=== PATIENT | female | born 1965 | race Caucasian/White ===

== ENCOUNTER 2016-08-30 07:04 | Day surgery (SDC) | payer OTHER ==
[2016-08-22 09:53] VITALS: BMI 21.2
--- NOTE | 2016-08-25 13:56 | HP ---
Admitting History and Physical - Primary Care Physician PCP: Miguel Cabrera - Admission Chief Complaint: Right breast cancer and right axillary mass History of Present Illness: 50 year old premenapausal female with family H/O breast cancer with screening mammogram showing dense tissu . US showed shadowing in a few areas at 1:00 and core bx of right breast 1:00 5 cm FN x two showed invasive ductal carcinoma and DCIS. There was also a right axillary density that was compatible with sebaceous cyst or lipoma. MRI breast showed negative left breast and right breast newly diagnosed right breast cancer and axillary mass for US core. Dr Cabrera examined the patient and feels it is benign and can be excised at time of surgery. History Source: Patient Limitations to Obtaining History: No Limitations - Past Medical History Cardiovascular: Yes: HTN, Hyperlipdemia ...LMP Comment: PT. HAS IUD ...: No - Smoking History Smoking history: Never smoked Have you smoked in the past 12 months: No - Alcohol/Substance Use Hx Alcohol Use: No Home Medications - Allergies Allergies/Adverse Reactions: Allergies Allergy/AdvReac Type Severity Reaction Status Date / Time No Known Allergies Allergy Verified 08/22/16 09:42 - Home Medications Home Medications: Ambulatory Orders Atorvastatin Ca [Lipitor] 10 mg PO HS 08/22/16 Cholecalciferol (Vitamin D3) [Vitamin D3] 2,000 unit PO HS 08/22/16 Lisinopril [Zestril] 5 mg PO HS 08/22/16 Family Disease History - Family Disease History Family Disease History: CA: Grandparent (maternal GF CRC 70), Father (melanoma 70), Sister (Breast ca 45 BRCA neg) Physical Examination Constitutional: Yes: Well Nourished Breast(s): Yes: Other (diffusely nodule bilaterally post bx changes right breast right axillary nodule soft and consistent with lipoma) Problem List - Problems (1) Breast cancer, right breast Code(s): C50.911 - MALIGNANT NEOPLASM OF UNSP SITE OF RIGHT FEMALE BREAST Qualifiers: Breast location: upper inner quadrant of breast Patient sex: female Qualified Code(s): C50.211 - Malignant neoplasm of upper-inner quadrant of right female breast Assessment/Plan Right breast wide excision, mammogram localization, lymphoscintogram , sentenel node biopsy , possible axillary node dissection, excision of right axillary mass.
[2016-08-30] MEDS ORDERED: LIDOCAINE HCL 1%, 10 MG/ML (20ML VIAL) ONE (10:37)
[2016-08-30] MEDS ORDERED: ISOSULFAN BLUE 10 MG/ML VIAL SQ ONE (10:37)
[2016-08-30] MEDS ORDERED: MIDAZOLAM HCL 2 MG/2 ML SINGLE DOSE VIAL ONE (11:19)
[2016-08-30] MEDS ORDERED: KETOROLAC TROMETHAMINE 30 MG/1 ML VIAL IVPUSH PRN (11:23)
[2016-08-30] MEDS ORDERED: ONDANSETRON 4 MG/2 ML VIAL IVPB PRN (11:23)
[2016-08-30] MEDS ORDERED: DEXTROSE 5%-0.45% SALINE 1,000 ML IV SCH (11:30)
[2016-08-30] MEDS ORDERED: PROMETHAZINE HCL 25 MG/1 ML VIAL ONE (13:21)
[2016-08-30] MEDS ORDERED: oxyCODONE HCL 5 MG TABLET PO PRN ×2 (13:51)
[2016-08-30] MEDS ORDERED: PROMETHAZINE HCL 25 MG/1 ML VIAL IVPUSH PRN (13:51)
[2016-08-30] MEDS ORDERED: LACTATED RINGERS SOLUTION 1,000 ML IV SCH (14:00)
[2016-08-30] MEDS ORDERED: oxyCODONE HCL 5 MG TABLET ONE (15:33)
[2016-08-30 16:42] VITALS: BP 124/67; PULSE 76; TEMP 98.1
--- NOTE | 2016-08-30 21:39 | OP ---
DATE OF OPERATION: 08/30/2016 PREOPERATIVE DIAGNOSIS: Right breast cancer and right axillary sebaceous cyst. POSTOPERATIVE DIAGNOSIS: Right breast cancer and right axillary sebaceous cyst. PROCEDURE: Right breast partial mastectomy with complex tissue transfer, sentinel lymph node biopsy, and excision of right axillary sebaceous cyst. ANESTHESIA: General, intubated. ATTENDING SURGEON: Frannie Cabrera MD GREENKEEPER: BHUPENDRA Grayson ESTIMATED BLOOD LOSS: Minimal. COMPLICATIONS: None. PROCEDURE: Patient was made aware of the risks and benefits of the procedure and consented. Preoperatively, the patient went to Radiology, where a needle was placed next to the indexed lesion and then Nuclear Medicine, where technetium was injected into the retroareolar area. The patient was then placed in a supine position on the operating room table, and after general anesthesia was induced, the patient was intubated. Then 2 mL of 1% isosulfan blue were locally infiltrated into the retroareolar tissue. The operative site was prepped and draped in the usual sterile fashion, waiting approximately 10 minutes. With gentle manual compression, a curvilinear incision was made in the right axilla using blunt and sharp dissection. Tissues were dissected down to the axilla, where 2 courses of hot lymph nodes were identified and removed as well as 2 blue lymph nodes were seen and sharply excised. These were all submitted as 1 specimen for permanent sectioning. Palpation of the rest of the axilla revealed no other suspicious lymph nodes and scanning revealed the radioactive uptake was less than 10% of baseline before surgery. Laterally there was a palpable sebaceous cyst and this was sharply excised and submitted for permanent sectioning. The wound was copiously irrigated with normal saline, hemostasis maintained by electrocautery. The wound was then closed with deep 3-0 Vicryl followed by running subcuticular 4-0 Monocryl. The breast was approached 1st. A curvilinear incision was made next to the wire using electrocautery. Thick skin flaps were made. The needle was withdrawn to the puncture site of wire and tissues around the wire were then sharply excised and submitted with a short suture superior, long suture lateral. Specimen radiograph confirmed the presence of the 2 clips. Additional segment was taken medially and the new margin was labeled with a suture. The other segments were taken superior, inferior, lateral, and anterior, and these were all labeled with a metallic clip for the new margins. The deep margin was not taken since it went down to the pectoralis muscle. Using electrocautery, the breast tissue was taken off the pectoralis muscle 6 cm in each direction and then rotated into the cavity with multiple layers of [id number] 2-0 Vicryl. Skin was then closed with deep 3-0 Vicryl followed by running subcuticular 4-0 Monocryl. Steri-Strips and sterile bandage as well as a compression bra were then applied and the patient, having tolerated the procedure well, was transferred to the recovery room in excellent condition. FRANNIE CABRERA M.D. [id number]
--- NOTE | 2016-09-02 15:37 | PATH ---
Surgical Pathology Report Patient Name: TRACY CUNNINGHAM [facility]. Rec. #: [id number] /Age/Gender: 1965 (Age: 50) / F Account: [id number] Location: [facility] Taken: 08/30/2016 Received: 08/30/2016 Reported: 09/02/2016 Physicians: Miguel Cabrera M.D. Specimen(s) Received A: RIGHT AXILLARY SENTINEL LYMPH NODES B: RIGHT AXILLARY SEBACIOUS CYST C: RIGHT BREAST WIDE EXCISION D: RIGHT BREAST MEDIAL SEGMENT E: RIGHT BREAST SUPERIOR SEGMENT F: RIGHT BREAST INFERIOR SEGMENT G: RIGHT BREAST LATERAL SEGMENT H: RIGHT BREAST ANTERIOR SEGMENT Clinical History Wide excision: Invasive carcinoma Final Diagnosis A. LYMPH NODES, RIGHT AXILLARY SENTINEL, EXCISION: FOUR LYMPH NODES, NEGATIVE FOR METASTATIC CARCINOMA (0/4). B. "AXILLARY SEBACEOUS CYST", RIGHT, EXCISION: BENIGN BREAST TISSUE SHOWING FIBROCYSTIC CHANGES INCLUDING PROMINENT LARGE CYST AND MICROCYSTS WITH APOCRINE METAPLASIA. C. BREAST, RIGHT, WIDE EXCISION: INVASIVE LOBULAR CARCINOMA, CLASSICAL TYPE (NUCLEAR GRADE 1-2), MEASURING 1.6 CM IN GREATEST DIMENSION, MICROSCOPICALLY. (SEE NOTE) LOBULAR CARCINOMA IN SITU (LCIS), CLASSICAL TYPE. INVASIVE CARCINOMA IS CLOSE TO (< 1 MM) THE LATERAL, INFERIOR AND DEEP MARGINS. SEE SPECIMENS D-H FOR FINAL MARGINS. FOCAL FLAT EPITHELIAL ATYPIA. NO LYMPHOVASCULAR INVASION IS IDENTIFIED. PRIOR BIOPSY SITE CHANGES ARE PRESENT. PATHOLOGIC STAGE (pTNM): pT1c pN0. SEE ALSO INVASIVE CARCINOMA CASE SUMMARY BELOW. Note: Two separate biopsy clips are identified within the specimen, corresponding to two separate biopsy sites. However, microscopically, the two separately biopsied lesions appear to be one contiguous lesion. The carcinoma is negative for E-cadherin (performed at [facility]), which supports lobular phenotype. D. BREAST, RIGHT, MEDIAL SEGMENT, EXCISION: INVASIVE LOBULAR CARCINOMA, FOCALLY AT 1 MM FROM THE CLOSEST NEW MARGIN. LOBULAR CARCINOMA IN SITU (LCIS). PRIOR BIOPSY SITE CHANGES ARE PRESENT. E. BREAST, RIGHT, SUPERIOR SEGMENT, EXCISION: BENIGN BREAST TISSUE. F. BREAST, RIGHT, INFERIOR SEGMENT, EXCISION: INVASIVE LOBULAR CARCINOMA, EXTENDING TO THE NEW MARGIN. LOBULAR CARCINOMA IN SITU (LCIS). G. BREAST, RIGHT, LATERAL SEGMENT, EXCISION: BENIGN BREAST TISSUE. H. BREAST, RIGHT, ANTERIOR SEGMENT, EXCISION: BENIGN FIBROADIPOSE TISSUE. Comments Breast Invasive Carcinoma: Surgical Pathology Cancer Case Summary Based on AJCC/UICC TNM, 7th edition Procedure _X_ Excision with image-guided localization Lymph Node Sampling _X_ [place] lymph node(s) Specimen Laterality _X_ Right Tumor Size: Size of Largest Invasive Carcinoma: 1.6 cm Tumor Focality _X_ Single focus of invasive carcinoma Macroscopic and Microscopic Extent of Tumor Nipple _X_ Not applicable (excisions less than total mastectomy) Ductal Carcinoma In Situ (DCIS) _X_ No DCIS is present Histologic Type of Invasive Carcinoma : _X_ Invasive lobular carcinoma Histologic Grade: ([place] Histologic Score) Tubular Differentiation _X_ Score cannot be determined Nuclear Pleomorphism _X_ Score 1-2 Mitotic Rate _X_ Score 1 Overall Grade _X_ Score cannot be determined. Margins _X_ Margin(s) positive for invasive carcinoma: inferior (specimen F) _X_ Margin(s) close to (< 1 mm) invasive carcinoma: deep (specimen C) Lymph-Vascular Invasion _X_ Not identified Lymph Nodes Total number of lymph nodes examined (sentinel and nonsentinel): 4 Number of sentinel lymph nodes examined: 0 Number of lymph nodes with macrometastases ( > 2 mm): 0 Number of lymph nodes with micrometastases (>0.2 mm to 2 mm and/or >200cells):0 Number of lymph nodes with isolated tumor cells (=0.2 mm and =200 cells): 0 Extranodal Extension _X_ Not applicable Pathologic Staging (pTNM) Primary Tumor (Invasive Carcinoma): pT1c Regional Lymph Nodes (pN): pN0 (sn) Biomarker Studies Results of ER and ID studies performed on this specimen (block C4) at [facility] are as follows: ER (clone [id number] mouse monoclonal antibody by [employer]): ~70 % nuclear staining with moderate to strong intensity (Positive). ID (clone16 mouse monoclonal antibody by [employer]): ~70 % nuclear staining with moderate to strong intensity (Positive). Results of Her2 (IHC) & Ki-67 studies performed on this specimen (block C4) at [place], [place] ( [id number]) are as follows: Her2 IHC (EP3 from [employer], formerly known as [id number], using [place] Polymer Refine detection kit): 1+ (Negative). Ki67: ~5% (Low). Positive and negative controls (internal if applicable) show appropriate results. Formalin fixation and cold ischemic times are within current ASCO/CAP recommendations for ER, ID and Her2 testing. Electronically Signed Andreea Fierro M.D. Gross Description A. Received in formalin labeled "right axillary sentinel nodes," are 4 pineda, irregular lymph nodes with attached fat ranging from 0.1-1.1 cm in greatest dimension. The lymph nodes are entirely submitted in 3 cassettes as follows: 1-two whole lymph nodes; 2-one whole bisected lymph node; 3-one whole bisected lymph node. B. Received in formalin labeled "right axillary sebaceous cyst," is a 2.0 x 1.8 x 1.5 cm irregular, unoriented portion of fibroadipose tissue. Sectioning reveals a 0.6 cm in greatest dimension pineda cystic structure surrounded by fibrous tissue. Retail [employer]cer sections are submitted in 2 cassettes. C. Received in formalin labeled "right breast wide excision," is a 2.8 x 2.8 x 1.5 cm pineda-yellow, irregular portion of fibroadipose tissue with a short suture marking the superior margin and a long suture marking the lateral margin of the specimen, per the surgeon. A needle localization wire is present. There is no skin present. The specimen is inked as follows: Superior and lateral blue; inferior green; medial yellow; anterior red; deep black. The specimen is serially sectioned from lateral to medial. Sectioning reveals a 1.4 x 0.9 x 0.6 cm pineda, firm mass. The mass focally abuts the deep margin and is at 0.4 cm from the inferior margin and 0.5 cm from the superior margin. There are 2 toure metallic biopsy clips identified within the mass. The specimen is entirely and sequentially submitted in 8 cassettes with the lateral margin in cassette 1, the medial margin in cassette 8 and the sections with the biopsy clips in cassettes 2 and 4. Time to formalin fixation: 5 minutes Total formalin fixation time: Approximately 30 hours. D. Received in formalin labeled "medial segment right breast," is a 1.8 x 1.3 x 0.7 cm irregular portion of fibroadipose tissue with a suture marking the new margin, per the surgeon. The new margin is inked green and the specimen is serially sectioned. The specimen is entirely and sequentially submitted in 3 cassettes. E. Received in formalin labeled "superior segment right breast," is a 1.4 x 1.0 x 0.5 cm irregular portion of fibroadipose tissue with a clip marking the new margin, per the surgeon. The new margin is inked green and the specimen is serially sectioned. The specimen is entirely submitted in 2 cassettes. F. Received in formalin labeled "inferior segment right breast," is a 1.5 x 1.0 x 0.5 cm irregular portion of fibroadipose tissue with a clip marking the new margin, per the surgeon. The new margin is inked green and the specimen is serially sectioned. The specimen is entirely submitted in 2 cassettes. G. Received in formalin labeled "lateral segment right breast," is a 1.4 x 1.2 x 0.4 cm irregular portion of fibroadipose tissue with a clip marking the new margin, per the surgeon. The new margin is inked green and the specimen is serially sectioned. The specimen is entirely and sequentially submitted in 3 cassettes. H. Received in formalin labeled "anterior segment right breast," is a 1.0 x 0.9 x 0.3 cm irregular portion of fibroadipose tissue with a clip marking the new margin, per the surgeon. The new margin is inked green and the specimen is serially sectioned. The specimen is entirely submitted in one cassette. 09/02/201609/02/2016
== END 2016-08-30 16:30 | disposition home or self-care (01) ==
LOC: FASU 07:04
PROVIDERS: ATTEND Surgery Surgical Oncology
PROC: 0HBT0ZZ Excision of Right Breast, Open Approach (ICD-10-PCS; principal; 2016-08-30 12:06)
PROC: 0HX5XZZ Transfer Chest Skin, External Approach (ICD-10-PCS; 2016-08-30 12:06)
DX: C50.911 Malignant neoplasm of unspecified site of right female breast (principal); L72.3 Sebaceous cyst
CPT/HCPCS: 19281; 78195-TC; 84703; 88304-TC; 88307-TC; 88342-TC; 94760; A9541

== ENCOUNTER 2016-09-09 11:37 | Day surgery (SDC) | payer OTHER ==
[2016-09-06 11:53] VITALS: BMI 21.2
--- NOTE | 2016-09-07 09:54 | HP ---
Admitting History and Physical - Primary Care Physician PCP: Miguel Cabrera - Admission Chief Complaint: Right breast cancer History of Present Illness: 50 year old premenapausal female S/P right breast wide excision 08/30/2016 for invasive lobular carcinoma. She needs reexcision for positive inferior margin. History Source: Patient Limitations to Obtaining History: No Limitations - Past Medical History Cardiovascular: Yes: HTN, Hyperlipdemia ...LMP Comment: PT HAS IUD IN - Smoking History Smoking history: Never smoked Have you smoked in the past 12 months: No - Alcohol/Substance Use Hx Alcohol Use: No Home Medications - Allergies Allergies/Adverse Reactions: Allergies Allergy/AdvReac Type Severity Reaction Status Date / Time No Known Allergies Allergy Verified 08/22/16 09:42 - Home Medications Home Medications: Ambulatory Orders Atorvastatin Ca [Lipitor] 10 mg PO HS 08/22/16 Cholecalciferol (Vitamin D3) [Vitamin D3] 2,000 unit PO HS 08/22/16 Lisinopril [Zestril] 5 mg PO HS 08/22/16 Doxycycline Hyclate 100 mg PO BID 09/06/16 Family Disease History - Family Disease History Family Disease History: CA: Grandparent (maternal GF CRC 70), Father (melanoma 70), Sister (Breast ca 45 BRCA neg) Physical Examination Constitutional: Yes: Well Nourished Breast(s): Yes: Other (Right breast incison and axillary incision healing well steristrips are in place) Problem List - Problems (1) Breast cancer, right breast Code(s): C50.911 - MALIGNANT NEOPLASM OF UNSP SITE OF RIGHT FEMALE BREAST Qualifiers: Breast location: upper outer quadrant of breast Patient sex: female Assessment/Plan reexcision right breast positive inferior margin
[2016-09-09] MEDS ORDERED: LIDOCAINE HCL 1%, 10 MG/ML (20ML VIAL) ONE (12:31)
[2016-09-09] MEDS ORDERED: LIDOCAINE HCL/PF 2% SDV 5ML VIAL ONE (13:10)
[2016-09-09] MEDS ORDERED: PROPOFOL 20 ML ONE ×2 (13:10)
[2016-09-09] MEDS ORDERED: SUCCINYLCHOLINE CHLORIDE 200 MG/10 ML VIAL ONE (13:10)
[2016-09-09] MEDS ORDERED: MIDAZOLAM HCL 2 MG/2 ML SINGLE DOSE VIAL ONE (13:11)
[2016-09-09] MEDS ORDERED: KETOROLAC TROMETHAMINE 30 MG/1 ML VIAL IVPUSH PRN (14:11)
[2016-09-09] MEDS ORDERED: DEXTROSE 5%-0.45% SALINE 1,000 ML IV SCH (14:15)
[2016-09-09] MEDS ORDERED: ONDANSETRON 4 MG/2 ML VIAL IVPB PRN (14:24)
[2016-09-09] MEDS ORDERED: LACTATED RINGERS SOLUTION 1,000 ML IV SCH (14:45)
[2016-09-09] MEDS ORDERED: ONDANSETRON 4 MG/2 ML VIAL IVPUSH PRN (15:00)
[2016-09-09] MEDS ORDERED: oxyCODONE HCL 5 MG TABLET PO PRN (15:00)
[2016-09-09] MEDS ORDERED: PROMETHAZINE HCL 25 MG/1 ML VIAL IVPUSH PRN (15:01)
[2016-09-09 15:09] VITALS: TEMP 98.2
[2016-09-09] MEDS ORDERED: oxyCODONE HCL 5 MG TABLET ONE (15:13)
[2016-09-09 15:31] VITALS: BP 127/76; PULSE 70
--- NOTE | 2016-09-14 14:48 | PATH ---
Surgical Pathology Report Patient Name: TRACY CUNNINGHAM [facility]. Rec. #: [id number] /Age/Gender: 1965 (Age: 50) / F Account: [id number] Location: [facility] Taken: 09/09/2016 Received: 09/09/2016 Reported: 09/14/2016 Physicians: Miguel Cabrera M.D. Specimen(s) Received A: RIGHT BREAST RE-EXCISION, INFERIOR SEGMENT #1 B: RIGHT BREAST RE-EXCISION INFERIOR SEGMENT #2 C: RIGHT BREAST RE-EXCISION FINAL MARGIN Clinical History Invasive ILC positive inferior margin status post BCT Final Diagnosis A. BREAST, RIGHT, INFERIOR SEGMENT #1, RE-EXCISION: INVASIVE LOBULAR CARCINOMA, CLASSICAL TYPE (NUCLEAR GRADE 1-2), FOCALLY EXTENDING TO THE INKED RESECTION MARGIN OF THIS SPECIMEN. LOBULAR CARCINOMA IN SITU (LCIS), CLASSICAL TYPE. EXTENSIVE PRIOR SURGICAL SITE CHANGES. B. BREAST, RIGHT, INFERIOR SEGMENT #2, RE-EXCISION: INVASIVE LOBULAR CARCINOMA, CLASSICAL TYPE (NUCLEAR GRADE 1-2), FOCALLY EXTENDING TO THE INKED RESECTION MARGIN OF THIS SPECIMEN. LOBULAR CARCINOMA IN SITU (LCIS), CLASSICAL TYPE. EXTENSIVE PRIOR SURGICAL SITE CHANGES. C. BREAST, RIGHT, FINAL MARGIN, RE-EXCISION: INVASIVE LOBULAR CARCINOMA, CLASSICAL TYPE (NUCLEAR GRADE 1-2). LOBULAR CARCINOMA IN SITU (LCIS), CLASSICAL TYPE. INVASIVE CARCINOMA IS FOCALLY LESS THAN 0.5 MM FROM THE INKED FINAL MARGIN. Comment: Refer to the prior case ([id number]) for the results of the wide excision, biomarkers studies and e-cadherin immunostain results. Electronically Signed Riley Greene M.D. Gross Description A. Received in formalin labeled "right breast reexcision inferior segment #1," is a 3.0 x 2.6 x 0.9 cm irregular portion of fibroadipose tissue with a suture at the margin, per the surgeon. The margin is inked blue and the specimen is serially sectioned. The specimen is entirely and sequentially submitted in 4 cassettes. B. Received in formalin labeled "right breast reexcision inferior segment #2," is a 3.2 x 2.2 x 1.0 cm irregular portion of fibroadipose tissue with a suture marking the margin, per the surgeon. The margin is inked blue and the specimen is serially sectioned. The specimen is entirely and sequentially submitted in 4 cassettes. C. Received in formalin labeled "right breast reexcision final margin," is a 1.5 x 0.9 x 0.4 cm irregular portion of fibroadipose tissue with a suture marking the final margin, per the surgeon. The final margin is inked blue and the specimen is serially sectioned. The specimen is entirely submitted in 2 cassettes. 09/12/2016 [facility]09/12/2016
--- NOTE | 2016-09-26 10:33 | OP ---
DATE OF OPERATION: 09/09/2016 PREOPERATIVE DIAGNOSIS: Right breast cancer with positive inferior margin. POSTOPERATIVE DIAGNOSIS: Right breast cancer with positive inferior margin. PROCEDURE: Right breast re-excision with tissue transfer. ANESTHESIA: General intubated. SURGEON: Miguel Cabrera MD ESTIMATED BLOOD LOSS: Minimal. COMPLICATIONS: None. PROCEDURE: The patient was made aware of the risks and benefits of the procedure and consented. After she was placed in a supine position after general anesthesia was induced, the patient was intubated. The operative site was prepped and draped in the usual sterile fashion. The prior incision was opened up using blunt and sharp dissection. The previous tissue transfer reconstruction was taken down revealing the inferior margin. This was grasped, and additional tissue was taken with scalpel and a suture making the new margin; however, palpation of that new margin revealed additional thickened tissue that was somewhat suspicious, so an additional segment was taken labeled inferior segment number 2 with a suture at the new margin. Palpation of the inferior segment showed an additional thickened area that was of concern, so again, some more breast tissue inferiorly was grasped and sharply excised with a scalpel. The cut edges on the specimen and in the patient were both fatty and not suspicious. The 3 specimens were submitted for permanent sectioning. The wound was copiously irrigated with normal saline. Hemostasis maintained by electrocautery. The breast tissue was taken off the pectoralis muscle in each direction and rotated in the defect and closed with multiple layers of [id number] suture of 2-0 Vicryl. The skin was then closed with a deep 3-0 Vicryl followed by a running subcuticular 4-0 Monocryl. Steri-Strips and a sterile bandage was applied and the patient having tolerated the procedure well was transferred to the recovery room in excellent condition. MIGUEL CABRERA M.D. [id number]
== END 2016-09-09 16:15 | disposition home or self-care (01) ==
LOC: FASU 11:37
PROVIDERS: ATTEND Surgery Surgical Oncology
PROC: 0HX5XZZ Transfer Chest Skin, External Approach (ICD-10-PCS; 2016-09-09)
PROC: 0HBT0ZZ Excision of Right Breast, Open Approach (ICD-10-PCS; principal; 2016-09-09 13:30)
DX: C50.911 Malignant neoplasm of unspecified site of right female breast (principal)
CPT/HCPCS: 84703; 88307-TC; 94760

== ENCOUNTER 2016-10-18 07:09 | Inpatient (IN) | payer OTHER ==
[2016-10-11 11:35] VITALS: BMI 22.2
--- NOTE | 2016-10-11 13:07 | HP ---
Admitting History and Physical - Primary Care Physician PCP: Miguel Cabrera - Admission Chief Complaint: Right breast cancer History of Present Illness: 50 year old premenapausal female S/P right breast wide excision SNBX for 1.6 cm lobular carcinoma 0/4 negative sentenel nodes but had positive inferior margin. . Re excision right breast positive margin 09/09/2016 x3 all with invasive lobular carcinoma .5 mm from margin. Here for bilateral mastectomies due to her possible elevated risk of recurrence. History Source: Patient Limitations to Obtaining History: No Limitations - Past Medical History Cardiovascular: Yes: HTN, Hyperlipdemia - Past Surgical History Additional Past Surgical History: Right breast wide excision sentenel node biopsy with + inferior margin.0/4 negative nodes for ILC 1.6 cm and reexcision x3 with ILC in all specimen .5 cm margin 08/30/2016 and 09/09/2016 - Smoking History Smoking history: Never smoked Have you smoked in the past 12 months: No - Alcohol/Substance Use Hx Alcohol Use: No Home Medications - Allergies Allergies/Adverse Reactions: Allergies Allergy/AdvReac Type Severity Reaction Status Date / Time No Known Allergies Allergy Verified 10/11/16 11:25 - Home Medications Home Medications: Ambulatory Orders Atorvastatin Ca [Lipitor] 10 mg PO HS 08/22/16 Cholecalciferol (Vitamin D3) [Vitamin D3] 2,000 unit PO HS 08/22/16 Lisinopril [Zestril] 5 mg PO HS 08/22/16 Family Disease History - Family Disease History Family Disease History: CA: Grandparent (maternal GF CRC 70), Father (melanoma 70), Sister (Breast ca 45 BRCA neg) Other Family History: mat [place] breast ca 50. mat cousin x2 Breast ca 38/45 Physical Examination Constitutional: Yes: Well Nourished Breast(s): Yes: Other (Right breast incison and axillary incision healing well no signs of infection) Problem List - Problems (1) Breast cancer, right breast Code(s): C50.911 - MALIGNANT NEOPLASM OF UNSP SITE OF RIGHT FEMALE BREAST Qualifiers: Breast location: upper outer quadrant of breast Patient sex: female Assessment/Plan Bilateral total mastectomies with reconstruction
[2016-10-18] MEDS ORDERED: DEXAMETHASONE SOD PHOSPHATE/PF 10 MG/ML SDV ONE (07:28)
[2016-10-18] MEDS ORDERED: MIDAZOLAM HCL 2 MG/2 ML SINGLE DOSE VIAL ONE (07:28)
[2016-10-18] MEDS ORDERED: ceFAZolin SODIUM 1 GM VIAL ONE (07:29)
[2016-10-18] MEDS ORDERED: BUPIVACAINE HCL/PF 2.5 MG/ML - 30 ML VIAL IJ ONE ×2 (07:29)
[2016-10-18] MEDS ORDERED: GENTAMICIN SO4 80 MG/2 ML VIAL ONE (07:29)
[2016-10-18] MEDS ORDERED: LIDOCAINE 1%/EPI 1:100000 (20 ML MULTI DOSE VIAL) ONE (07:30)
[2016-10-18] MEDS ORDERED: SCOPOLAMINE HYDROBROMIDE 1 PATCH PATCH.TD72 ONE (08:07)
[2016-10-18] MEDS ORDERED: ACETAMINOPHEN 325 MG TABLET (FP) PO PRN (08:39)
[2016-10-18] MEDS ORDERED: ZOLPIDEM TARTRATE 5 MG TABLET PO PRN (08:39)
[2016-10-18] MEDS ORDERED: DEXTROSE 5%-0.45% SALINE 1,000 ML IV SCH (08:45)
[2016-10-18] MEDS ORDERED: ceFAZolin SODIUM 1 GM VIAL IVPB ONE (09:11)
[2016-10-18] MEDS ORDERED: oxyCODONE HCL 5 MG TABLET PO PRN (12:40)
[2016-10-18] MEDS ORDERED: diazePAM 2 MG TABLET PO SCH (12:45)
[2016-10-18] MEDS ORDERED: LACTATED RINGERS SOLUTION 1,000 ML IV SCH (12:45)
[2016-10-18] MEDS ORDERED: traMADol HCL 50 MG TABLET PO SCH (12:45)
[2016-10-18] MEDS ORDERED: ACETAMINOPHEN 325 MG TABLET (FP) PO SCH (12:45)
[2016-10-18] MEDS: HYDROmorphone HCL CARPU-JECT 1 MG/1 ML DISP.SYRIN ONE ×2 (14:15→14:25)
[2016-10-18] MEDS ORDERED: ONDANSETRON 4 MG/2 ML VIAL ONE (14:18)
[2016-10-18] MEDS: ONDANSETRON 4 MG/2 ML VIAL IVPB PRN (14:20)
[2016-10-18] MEDS: CEFAZOLIN 1 GM/D5W 50 ML IVPB SCH ×2 (15:57→21:34)
[2016-10-18] MEDS ORDERED: HYDROmorphone HCL CARPU-JECT 1 MG/1 ML DISP.SYRIN IVPUSH ONE (16:55)
--- NOTE | 2016-10-18 17:11 | OP ---
DATE OF OPERATION: 10/18/2016 PREOPERATIVE DIAGNOSIS: Right breast cancer. POSTOPERATIVE DIAGNOSIS: Right breast cancer. PROCEDURE: Bilateral total mastectomies. ANESTHESIA: General intubated. ATTENDING SURGEON: Frannie Cabrera MD CARPENTRY TEACHER: BHUPENDRA Grayson ESTIMATED BLOOD LOSS: Minimal. COMPLICATIONS: None. DESCRIPTION OF PROCEDURE: Patient was made aware of the risks and benefits of the procedure and consented. She was placed in a supine position, and after general anesthesia was induced, the patient was intubated. The operative site was prepped and draped in the usual sterile fashion. The left side was approached first. Horizontally oriented, elliptical incisions around the nipple and areola were made using electrocautery. Skin flaps were made superior to the clavicle, medial to the sternum, lateral to the latissimus dorsi, and inferior to the inframammary fold using electrocautery. The breast tissue was taken off the pectoralis muscle, extending to the latissimus dorsi. Specimen was submitted with a short stitch superior, long stitch lateral. The procedure was then turned over to Dr. Harris who did an implant reconstruction which he will dictate separately. The right side was then approached using different instruments and changing gowns and gloves. Again, a horizontally oriented, elliptical incision was made using electrocautery. Skin flaps were made superior to the clavicle, medial to the sternum, lateral to the latissimus dorsi, and inferior to the inframammary fold using electrocautery. The breast tissue was taken off the pectoralis muscle, extending laterally. Breast tissue was then submitted with a short stitch superior, long stitch lateral. Again, procedure was turned over to Dr. Harris who will dictate his reconstruction with implant. FRANNIE CABRERA M.D. [id number]
[2016-10-18] MEDS: traMADol HCL 50 MG TABLET PO SCH (19:40)
[2016-10-18] MEDS: ACETAMINOPHEN 325 MG TABLET (FP) PO SCH (19:40)
[2016-10-18] MEDS: ATORVASTATIN CA 10 MG TABLET (FP) PO SCH (21:27)
[2016-10-18] MEDS: diazePAM 2 MG TABLET PO SCH (21:28)
[2016-10-18] MEDS: LISINOPRIL 5 MG TABLET (FP) PO SCH (21:28)
[2016-10-18] MEDS: oxyCODONE HCL 5 MG TABLET PO PRN (21:28)
[2016-10-19] MEDS: traMADol HCL 50 MG TABLET PO SCH ×4 (01:21→20:10)
[2016-10-19] MEDS: ACETAMINOPHEN 325 MG TABLET (FP) PO SCH ×4 (01:22→20:12)
[2016-10-19] MEDS: CEFAZOLIN 1 GM/D5W 50 ML IVPB SCH ×4 (03:07→20:12)
[2016-10-19] MEDS: oxyCODONE HCL 5 MG TABLET PO PRN ×2 (06:19→11:47)
[2016-10-19] MEDS: diazePAM 2 MG TABLET PO SCH ×3 (06:19→22:10)
[2016-10-19] MEDS: HEPARIN NA (PORCINE) 5,000 UNITS/ML 1ML VIAL SQ SCH ×2 (08:02→20:12)
[2016-10-19] MEDS ORDERED: BENZOCAINE/MENTH/CETYLPYRD CL 1 EACH LOZENGE MM PRN (08:51)
--- NOTE | 2016-10-19 08:55 | PN ---
Progress Note, Physician Chief Complaint: Right breast cancer S/P bilateral total mastectomies reconstruction implant and alloderm History of Present Illness: patient is eating ,pain managed ,OOB this am - Current Medication List Current Medications: Active Medications Acetaminophen (Tylenol -) 650 mg PO Q4H PRN PRN Reason: FEVER Acetaminophen (Tylenol -) 650 mg PO Q6H [facility] Last Admin: 10/19/16 08:02 Dose: 650 mg Atorvastatin Calcium (Lipitor -) 10 mg PO HS [facility] Last Admin: 10/18/16 21:27 Dose: 10 mg Benzocaine/Menthol (Cepacol Lozenge -) 1 each MM PRN PRN PRN Reason: SORE THROAT Diazepam (Valium -) 2 mg PO Q8H [facility] Last Admin: 10/19/16 06:19 Dose: 2 mg Fentanyl (Sublimaze Injection -) 50 mcg IVPUSH [id number] PRN PRN Reason: PAIN Stop: 10/21/16 12:42 Last Admin: 10/18/16 13:40 Dose: 50 mcg Heparin Sodium (Porcine) (Heparin -) 5,000 unit SQ BID@0800,2000 [facility] Last Admin: 10/19/16 08:02 Dose: 5,000 unit Cefazolin Sodium (Ancef 1 Gm Premixed Ivpb -) 50 mls @ 100 mls/hr IVPB Q6H-IV [facility] Stop: 10/25/16 08:59 Last Admin: 10/19/16 03:07 Dose: 100 mls/hr Dextrose/Sodium Chloride (D5-1/2ns -) 1,000 mls @ 100 mls/hr IV ASDIR [facility] Last Admin: 10/18/16 15:30 Dose: 100 mls/hr Lactated Ringer's (Lactated Ringers Solution) 1,000 mls @ 125 mls/hr IV ASDIR [facility] Lisinopril (Prinivil) 5 mg PO HS [facility] Last Admin: 10/18/16 21:28 Dose: 5 mg Ondansetron HCl (Zofran Injection) 4 mg IVPB Q6H PRN PRN Reason: NAUSEA AND/OR VOMITING Last Admin: 10/18/16 14:20 Dose: 4 mg Oxycodone HCl (Roxicodone -) 5 mg PO Q4H PRN PRN Reason: PAIN Last Admin: 10/19/16 06:19 Dose: 5 mg Oxycodone HCl (Roxicodone -) 10 mg PO Q4H PRN PRN Reason: PAIN Tramadol HCl (Ultram -) 50 mg PO Q6H [facility] Last Admin: 10/19/16 08:02 Dose: 50 mg Zolpidem Tartrate (Ambien -) 5 mg PO HS PRN PRN Reason: Insomnia - Objective Vital Signs: Vital Signs Temperature 98.1 F 10/19/16 05:28 Pulse Rate 65 10/19/16 06:56 Respiratory Rate 18 10/19/16 05:28 Blood Pressure 96/42 10/19/16 06:56 O2 Sat by Pulse Oximetry (%) 99 10/19/16 05:28 Constitutional: Yes: Well Nourished, No Distress Breast(s): Yes: Other (Bilateral flaps are viable with some echymosis bilaterally incision intact with steristrips,anuj drains functioning) Problem List - Problems (1) Breast cancer, right breast Code(s): C50.911 - MALIGNANT NEOPLASM OF UNSP SITE OF RIGHT FEMALE BREAST Qualifiers: Breast location: upper outer quadrant of breast Patient sex: female Assessment/Plan Iv antibiotics cont pain medication spirometry cepacol lozenger for sore throat prepare for discharge tomorrow
[2016-10-19 08:58] LABS: MCH 31.6 pg (25.7-33.7); MCHC 33.8 g/dl (32.0-36.0); MEAN CELL VOLUME 93.5 fl (80-96); MEAN PLT VOLUME 9.8 fl (7.5-11.1); PLATELET COUNT 276 K/MM3 (134-434); RDW 13.4 % (11.6-15.6); WHITE BLOOD COUNT 13.5 K/mm3 (4.0-10.8)
--- NOTE | 2016-10-19 13:01 | PN ---
Progress Note (short form) - Note Progress Note: Anesthesia postop note S/P bilateral mastectomy with reconstruction., POD#1.GETA and paravertebral block. Pat seen and examined. Ambulating. VSS. Some pain at drain sites. Sore throat after intubation, using lozinger, pain alleviates.No apparent post ansesthesia complications.
[2016-10-19] MEDS: ATORVASTATIN CA 10 MG TABLET (FP) PO SCH (22:10)
[2016-10-19] MEDS: LISINOPRIL 5 MG TABLET (FP) PO SCH (22:10)
[2016-10-20] MEDS: CEFAZOLIN 1 GM/D5W 50 ML IVPB SCH ×2 (02:14→08:15)
[2016-10-20] MEDS: ACETAMINOPHEN 325 MG TABLET (FP) PO SCH ×2 (02:14→07:00)
[2016-10-20] MEDS: traMADol HCL 50 MG TABLET PO SCH ×2 (02:14→08:12)
[2016-10-20 06:45] VITALS: BP 107/54; PULSE 66; TEMP 98.4
[2016-10-20] MEDS: diazePAM 2 MG TABLET PO SCH (07:00)
--- NOTE | 2016-10-20 08:13 | PN ---
Progress Note, Physician Chief Complaint: Right breast cancer S/P bilateral total mastectomies implant and alloderm History of Present Illness: patient is eating OOB pain managed ,ready for discharge today - Current Medication List Current Medications: Active Medications Acetaminophen (Tylenol -) 650 mg PO Q4H PRN PRN Reason: FEVER Acetaminophen (Tylenol -) 650 mg PO Q6H [facility] Last Admin: 10/20/16 07:00 Dose: 650 mg Atorvastatin Calcium (Lipitor -) 10 mg PO HS [facility] Last Admin: 10/19/16 22:10 Dose: 10 mg Benzocaine/Menthol (Cepacol Lozenge -) 1 each MM PRN PRN PRN Reason: SORE THROAT Diazepam (Valium -) 2 mg PO Q8H [facility] Last Admin: 10/20/16 07:00 Dose: 2 mg Fentanyl (Sublimaze Injection -) 50 mcg IVPUSH [id number] PRN PRN Reason: PAIN Stop: 10/21/16 12:42 Last Admin: 10/18/16 13:40 Dose: 50 mcg Heparin Sodium (Porcine) (Heparin -) 5,000 unit SQ BID@0800,2000 [facility] Last Admin: 10/19/16 20:12 Dose: 5,000 unit Cefazolin Sodium (Ancef 1 Gm Premixed Ivpb -) 50 mls @ 100 mls/hr IVPB Q6H-IV [facility] Stop: 10/25/16 08:59 Last Admin: 10/20/16 02:14 Dose: 100 mls/hr Dextrose/Sodium Chloride (D5-1/2ns -) 1,000 mls @ 100 mls/hr IV ASDIR [facility] Last Admin: 10/18/16 15:30 Dose: 100 mls/hr Lactated Ringer's (Lactated Ringers Solution) 1,000 mls @ 125 mls/hr IV ASDIR [facility] Lisinopril (Prinivil) 5 mg PO HS [facility] Last Admin: 10/19/16 22:10 Dose: 5 mg Ondansetron HCl (Zofran Injection) 4 mg IVPB Q6H PRN PRN Reason: NAUSEA AND/OR VOMITING Last Admin: 10/18/16 14:20 Dose: 4 mg Oxycodone HCl (Roxicodone -) 5 mg PO Q4H PRN PRN Reason: PAIN Last Admin: 10/19/16 11:47 Dose: 5 mg Oxycodone HCl (Roxicodone -) 10 mg PO Q4H PRN PRN Reason: PAIN Tramadol HCl (Ultram -) 50 mg PO Q6H [facility] Last Admin: 10/20/16 02:14 Dose: 50 mg Zolpidem Tartrate (Ambien -) 5 mg PO HS PRN PRN Reason: Insomnia - Objective Vital Signs: Vital Signs Temperature 98.4 F 10/20/16 06:00 Pulse Rate 66 10/20/16 06:00 Respiratory Rate 17 10/20/16 06:00 Blood Pressure 107/54 10/20/16 06:00 O2 Sat by Pulse Oximetry (%) 100 10/20/16 06:00 Constitutional: Yes: Well Nourished, No Distress Breast(s): Yes: Other (bilateral flaps viable mild echymosis, incision intact steristrips in place) Labs: CBC, BMP 10/19/16 07:35 Problem List - Problems (1) Breast cancer, right breast Code(s): C50.911 - MALIGNANT NEOPLASM OF UNSP SITE OF RIGHT FEMALE BREAST Qualifiers: Breast location: upper outer quadrant of breast Patient sex: female Assessment/Plan discharge patient home today follow up in one week Dr Harris and Dr green no shower, empty and record PARVEZ output
[2016-10-20] MEDS: ONDANSETRON 4 MG/2 ML VIAL IVPB PRN (09:01)
--- NOTE | 2016-10-21 14:25 | OP ---
DATE OF OPERATION: 10/18/2016 SURGEON: Wilfredo Harris MD RADIO TIME BUYER: Patient had breast tissue removed on the right breast of 202 g and the left breast 261 g. She had Natrelle Inspira style FF 410 highly cohesive, anatomically shaped silicone-filled implants of 255 mL placed bilaterally. PREOPERATIVE DIAGNOSES: 1. Bilateral acquired chest wall deformity status post bilateral mastectomy (611.89). 2. Personal history of genetic carcinoma. POSTOPERATIVE DIAGNOSES: 1. Bilateral acquired chest wall deformity status post bilateral mastectomy (611.89). 2. Personal history of genetic carcinoma. PROCEDURE: 1. Right immediate breast reconstruction utilizing immediate insertion of silicone breast implant and DermACELL reconstruction. 2. Left immediate breast reconstruction utilizing immediate insertion of silicone breast implant and DermACELL reconstruction. 3. Intravenous injection of indocyanine green dye and intraoperative diagnostic evaluation of non-coronary intraoperative fluorescein vascular angiography x 2. 4. SPY intraoperative angiogram. ANESTHESIA: General. ANESTHESIOLOGIST: OPERATIVE PROCEDURE IN DETAIL: The patient was taken to the operating room. After induction of general anesthesia in the supine position, both arms were extended and padded. Venodyne boots were placed. The entire chest wall was painted with ChloraPrep solution over its entire extent, and sterile drapes were placed in the usual fashion. The markings, which had been made in the standing position preoperatively, were reoutlined with the patient's knowledge. Time-out procedure was performed. The blood flow to the skin appeared to be good. Attention was turned by to the mastectomies. Bilateral inframammary incisions were made and . performed mastectomies. This will be dictated under separate cover. Upon completion of the mastectomies, the wounds were copiously irrigated and attention was turned to the right breast. A subpectoral dissection was begun on the right breast, superiorly from the second rib, medially to the sternal fibers, and down to the inframammary fold, elevating the pectoralis major muscle from its insertion. At this point, an 8.0 x 16.0 sheet of DermACELL was brought into the field and sutured superiorly along the pectoralis major muscle after rehydration. This was carried along the lateral mammary fold and down the side of the breast reconstruction. At this point, a Natrelle Inspira style FF 410, 255-mL, highly cohesive, anatomically shaped silicone-filled implant was chosen. The left breast tissue removed was 261 g, and the right breast approximately 202 g. This implant was placed and then sutured with 3-0 Vicryl suture continued along the inframammary fold, completely covering the implant itself. The exact same procedure was carried out symmetrically on the opposite breast, also placing a Natrelle Inspira style FF 410, 255-mL, highly cohesive, anatomically shaped silicone-filled implant in the same subpectoral pocket. Good symmetry was seen in the sitting position. After the implants were in place, the patient was injected with 10 mL of Isocyanide green dye and the Spy imaging system was brought into the field. The skin flowed to the right and left breasts and the nipple areolar complex, and the entire skin flaps were evaluated and seen to be viable with good blood flow. Two Chaim-Turpin drains were brought out through separate stab wounds laterally. The Smart Infuser pump catheter was inserted medially and into the subpectoral position. Both wounds were closed symmetrically using 3-0 PDS suture on the deep tissue, 3-0 in a deep dermal fashion, and 4-0 in a subcuticular fashion. Both wounds were dressed sterilely with Mastisol and Steri-Strips with a surgical bra and a compression strap. The patient tolerated the procedure well. She was awakened, extubated and transferred to the recovery room in satisfactory condition. The children's nursery assistant was present during the entire portion of the operation and closure. WILFREDO HARRIS M.D. MAGDA/[id number]
--- NOTE | 2016-10-21 15:06 | PATH ---
Surgical Pathology Report Patient Name: TRACY CUNNINGHAM [facility]. Rec. #: [id number] /Age/Gender: 1965 (Age: 50) / F Account: [id number] Location: [facility] MED-SURG Taken: 10/18/2016 Received: 10/18/2016 Reported: 10/21/2016 Physicians: Miguel Cabrera M.D. Specimen(s) Received A: LEFT BREAST TOTAL MASTECTOMY B: RIGHT BREAST TOTAL MASTECTOMY Clinical History Right breast IDC/ILC Status post wide excision x2 Final Diagnosis A. BREAST, LEFT, TOTAL MASTECTOMY: FOCAL LOBULAR CARCINOMA IN SITU (LCIS), CLASSICAL TYPE. SMALL INTRADUCTAL PAPILLOMA WITH USUAL DUCT HYPERPLASIA, FIBROCYSTIC CHANGE WITH USUAL DUCT HYPERPLASIA, FOCAL COLUMNAR CELL CHANGE, CYSTS APOCRINE METAPLASIA AND STROMAL FIBROSIS. Comment: Immunohistochemical stain for E-cadherin performed and interpreted as [facility] on block A6 shows foci of negative staining, supporting LCIS. B. BREAST, RIGHT, TOTAL MASTECTOMY: FOCUS OF INVASIVE LOBULAR CARCINOMA, CLASSICAL TYPE, 2.0 MM, IN THE UPPER UNNER QUADRANT. RESIDUAL LOBULAR CARCINOMA IN SITU (LCIS), CLASSICAL TYPE ALSO PRESENT. ASSOCIATED EXTENSIVE PRIOR SURGICAL SITE CHANGES PRESENT. SURGICAL RESECTION MARGINS: NEGATIVE FOR CARCINOMA, CLOSEST RESECTION MARGIN (DEEP) IS >1.0 CM AWAY FROM INVASIVE CARCINOMA. LYMPHOVASCULAR INVASION: NOT IDENTIFIED. PERINEURAL INVASION: NOT IDENTIFIED. BENIGN NIPPLE AND SKIN. SURROUNDING BREAST TISSUE: SMALL INTRADUCTAL PAPILLOMA WITH USUAL DUCTAL HYPERPLASIA, FIBROCYSTIC CHANGE WITH USUAL DUCT HYPERPLASIA, ADENOSIS, FOCAL COLUMNAR CELL CHANGE DUCT DILATATION, CYSTIC APOCRINE METAPLASIA AND STROMAL FIBROSIS. PATHOLOGIC STAGING: SEE COMMENT. RECEPTOR STATUS: SEE COMMENT. Comment: Immunohistochemical stains performed and interpreted at [facility] on block B9 show the following: the invasive carcinoma cells are positive for Ae1/Ae3 keratin and negative for E-cadherin supporting lobular phenotype. Prior excision specimens (D17-728 and D17-805) showed invasive lobular carcinoma and LCIS, classical type focally extending to the margins of resection. Pathologic staging was pT1c pN0(sn). The tumor cells are ER and CO positive, with 70% nuclear staining with moderate to strong intensity and Her2 1+ (negative). The size of the invasive carcinoma focus in the current specimen is 2 mm, pathologic staging remains pT1c. Electronically Signed Riley Greene M.D. Gross Description A. Received in formalin, labeled "left breast 261 g" is a 14.0 x 14.0 x 4.0 cm. left mastectomy specimen with a short suture marking the superior aspect and a long suture marking the lateral aspect of the specimen, per the surgeon. The anterior surface displays a 6.2 x 3.7 cm pineda, elliptical portion of skin with a 1.5 cm in diameter nipple. The deep margin is inked black and the anterior soft tissue margin is inked blue. The specimen is serially sectioned from medial to lateral. Sectioning reveals abundant dense, white, firm fibrous tissue. No definitive masses are identified. Banquet Stewardess sections are submitted in 17 cassettes as follows: 1-serially sectioned nipple; 2-subareolar shave; 3-5-upper outer quadrant; 6-8-lower outer quadrant; 9-11-upper inner quadrant; 12-13-lower inner quadrant; 30-21-pjjyamqmggjd tissue; 16-skin and anterior soft tissue margin; 17-deep margin. B. Received in formalin, labeled "right breast 202 g" is a 13.5 x 12.5 x 3.8 cm. right mastectomy specimen with a short suture marking the superior aspect and a long suture marking the lateral aspect of the specimen, per the surgeon. The anterior surface displays a 6.0 x 3.3 cm pineda, elliptical portion of skin with a 1.2 cm diameter nipple. The deep margin is inked black and the anterior soft tissue margin is inked blue. The specimen is serially sectioned from medial to lateral. Sectioning reveals a 2.5 x 2.0 x 2.0 cm ill-defined focus of firm fibrotic tissue in the upper inner quadrant (UIQ), possibly consistent with a previous excision site. The firm focus abuts the anterior soft tissue margin. The remaining breast parenchyma displays abundant dense, white, focally firm fibrocystic tissue. No definitive mass is identified. Banquet Stewardess sections are submitted in 22 cassettes as follows: 1-serially sectioned nipple; 2-subareolar shave; 3-7-UIQ possible previous excision site; 2-2-crgfnoicwm UIQ tissue; 10-12-lower inner quadrant; 13-16-upper outer quadrant; 17-19-lower outer quadrant; 20-retroareolar tissue; 21-skin and anterior soft tissue margin; 22-deep margin. Total formalin fixation time: ~31h 10/19/201610/19/2016
== END 2016-10-20 12:37 | disposition home or self-care (01) | DRG 583 ==
LOC: FM/S 07:09
PROVIDERS: ADMIT Surgery Surgical Oncology; ATTEND Surgery Surgical Oncology
PROC: 0HTV0ZZ Resection of Bilateral Breast, Open Approach (ICD-10-PCS; principal; 2016-10-18 09:21)
PROC: 0HRV0JZ Replacement of Bilateral Breast with Synthetic Substitute, Open Approach (ICD-10-PCS; 2016-10-18 09:21)
DX: C50.911 Malignant neoplasm of unspecified site of right female breast (principal); I10 Essential (primary) hypertension; E78.5 Hyperlipidemia, unspecified; M95.4 Acquired deformity of chest and rib; Z40.01 Encounter for prophylactic removal of breast; Z15.01 Genetic susceptibility to malignant neoplasm of breast
CPT/HCPCS: 36415; 84703; 85027; 88307-TC; 88341-TC; 94010; 94760; J1644

== ENCOUNTER 2020-06-24 11:01 | Emergency (ER) | payer OTHER | END 2020-06-24 13:34 | disposition home or self-care (01) | LOC: JVIRT 11:01 | DX: Z11.52 Encounter for screening for COVID-19 (principal) | CPT/HCPCS: C9803; G2251-GT; Q3014-GT; U0003 ==